=== PATIENT | male | born 1995 | race Caucasian/White ===

== ENCOUNTER 2019-07-12 08:12 | Day surgery (SDC) | payer OTHER ==
[~2019-07-12] VITALS: Ht 172.7 cm; Wt 73.0 kg
[2019-07-12] MEDS ORDERED: ACET325C6 GT (09:37)
[2019-07-12] MEDS ORDERED: LEVE500T53 PO (09:37)
[2019-07-12] MEDS ORDERED: BACL20TA PO (09:37)
[2019-07-12] MEDS ORDERED: METH20TA5 PO (09:37)
[2019-07-12] MEDS ORDERED: FLUO40CA2 PO (09:37)
[2019-07-12] MEDS ORDERED: LACT1CAP4 GT (09:37)
[2019-07-12] MEDS ORDERED: DIAZ5TAB4 PO (09:37)
[2019-07-12] MEDS ORDERED: BROM2.5T5 NG (09:37)
[2019-07-12] MEDS ORDERED: OXYB5TAB10 PO (09:37)
[2019-07-12] MEDS ORDERED: OXYC-302 PO ×2 (09:37)
[2019-07-12] MEDS ORDERED: IPRA3AMP30 TP (09:37)
[2019-07-12] MEDS ORDERED: DANT50CA NG (09:37)
[2019-07-12] MEDS ORDERED: MULT1TAB57 GT (09:37)
[2019-07-12] MEDS ORDERED: ONDA4TAB7 PO (09:37)
[2019-07-12] MEDS ORDERED: METH5TAB4 PO (09:37)
[2019-07-12] MEDS ORDERED: LANS30TA6 PO (09:37)
[2019-07-12] MEDS ORDERED: SCOP1PAT11 TD (09:37)
[2019-07-12] MEDS ORDERED: METHYLPHENIDATE (09:37)
[2019-07-12] MEDS ORDERED: DOCU50LI24 GT (09:37)
[2019-07-12] MEDS ORDERED: MAGN400O7 GT (09:37)
[2019-07-12] MEDS ORDERED: LORATIDINE GT (09:37)
[2019-07-12] MEDS ORDERED: LACTATED RINGERS 1,000 ML IV SCH ×2 (09:44→10:29)
[2019-07-12 09:48] VITALS: BP 101/67
[2019-07-12] MEDS ORDERED: CEFAZOLIN 1,000 MG ONE (09:58)
[2019-07-12] MEDS ORDERED: PLEASE ENTER HEIGHT AND WEIGHT MC SCH (10:00)
[2019-07-12] MEDS ORDERED: FENTANYL PF 100 MCG/2ML ONE ×2 (10:10→11:00)
[2019-07-12] MEDS ORDERED: SCOPOLAMINE PATCH, 1.5MG PATCH.TD72 TD ONE (10:30)
[2019-07-12] MEDS ORDERED: ACETAMINOPHEN 500 MG TABLET PO ONE (10:30)
[2019-07-12] MEDS ORDERED: GABAPENTIN 300 MG CAPSULE PO ONE (10:30)
[2019-07-12] MEDS ORDERED: FENTANYL PF 100 MCG/2ML IV PRN (11:30)
== END 2019-07-12 12:20 | disposition home or self-care (01) ==
LOC: OUT 08:12
PROVIDERS: ATTEND Internal Medicine Gastroenterology
DX: R13.14 Dysphagia, pharyngoesophageal phase (principal); G93.1 Anoxic brain damage, not elsewhere classified; I10 Essential (primary) hypertension; R56.9 Unspecified convulsions; Z79.891 Long term (current) use of opiate analgesic; Z79.899 Other long term (current) drug therapy
CPT/HCPCS: 43246; B4087; J0690; J3010